=== PATIENT | male | born 1970 | race Two or more races ===

== ENCOUNTER 2017-08-03 09:45 | Day surgery (SDC) | payer BC ==
[2017-07-30 13:07] VITALS: BMI 29.7
--- NOTE | 2017-08-03 07:03 | HP ---
History & Physical Update - History History: No Change - Physical Physical: No Change - Assessment Assessment: No Change - Plan Plan: No Change (L5/S1 radiculopathy--pain radiating down left leg)
[2017-08-03] MEDS ORDERED: oxyCODONE HCL 10 MG SUSTAINED ACTING TABLET PO STA (10:26)
[2017-08-03] MEDS ORDERED: CEFAZOLIN 2 GM in DEXTROSE 5%-WATER - 100 ML IVPB ONE (10:26)
[2017-08-03] MEDS ORDERED: THROMBIN (BOVINE) 5,000 UNIT VIAL TP ONE ×2 (10:54→13:00)
[2017-08-03] MEDS ORDERED: BUPIVACAINE HCL/PF 2.5 MG/ML - 30 ML VIAL IJ ONE (10:54)
[2017-08-03] MEDS ORDERED: LIDOCAINE 1%/EPI 1:100000 (20 ML MULTI DOSE VIAL) ONE (10:54)
[2017-08-03] MEDS ORDERED: methylPREDNISolone ACET (DEPO) 40 MG/1 ML VIAL ONE (10:54)
[2017-08-03] MEDS ORDERED: BUPIVACAINE HCL/PF 0.5% (5MG/ML) 10 ML VIAL ONE (11:15)
[2017-08-03] MEDS ORDERED: MIDAZOLAM HCL 2 MG/2 ML SINGLE DOSE VIAL ONE ×2 (11:28→11:52)
[2017-08-03] MEDS ORDERED: ceFAZolin SODIUM 1 GM VIAL ONE (11:47)
[2017-08-03] MEDS ORDERED: LIDOCAINE 1%/EPI 1:100000 (50 ML MULTI DOSE VIAL) INF ONE (11:55)
[2017-08-03] MEDS ORDERED: ONDANSETRON 4 MG/2 ML VIAL IVPUSH PRN (11:58)
[2017-08-03] MEDS ORDERED: oxyCODONE HCL 5 MG TABLET PO PRN (11:58)
[2017-08-03] MEDS ORDERED: LACTATED RINGERS SOLUTION 1,000 ML IV SCH (12:00)
[2017-08-03] MEDS ORDERED: DEXAMETHASONE SOD PHOSPHATE 4 MG/1 ML VIAL ONE (12:30)
[2017-08-03] MEDS ORDERED: ONDANSETRON 4 MG/2 ML VIAL ONE (12:30)
[2017-08-03] MEDS ORDERED: methylPREDNISolone ACET (DEPO) 40 MG/1 ML VIAL IM ONE (13:00)
[2017-08-03] MEDS ORDERED: BUPIVACAINE HCL/PF 0.25% (2.5MG/ML) 10 ML VIAL IJ ONE (13:17)
--- NOTE | 2017-08-03 13:40 | OP ---
Operative Note - Note: Operative Date: 08/03/17 Pre-Operative Diagnosis: spinal stenosis, L4/5 disc herniation, radiculopathy Operation: L4/5 laminectomy (bilateral) with discectomy; repair durotomy Post-Operative Diagnosis: Same as Pre-op Surgeon: Rico Abreu Review Coordinator: Mahamed Kirby Anesthesiologist/PLUMBING HARDWARE ASSEMBLER: Ileana Murray Anesthesia: Spinal Specimens Removed: L4/5 disc Estimated Blood Loss (mls): 25 Fluid Volume Replaced (mls): 1,000 Operative Report Dictated: Yes
--- NOTE | 2017-08-03 13:42 | SURG ---
Surgery Mining Analyst Note Mining Analyst: Mahamed Kirby PA-C Date of Service: 08/03/17 Diagnosis: Spinal stenosis, L4/5 disc herniation with radiculopathy Procedure: L4/5 bilateral laminectomy/discectomy, repair durotomy I was present for the entirety of the operative procedure. For further detail, please refer to operative report. Visit type - Case Type Case Type: Scheduled Admission - New patient This patient is new to me today: Yes Date on this admission: 08/03/17
[2017-08-03 14:59] VITALS: TEMP 97.8
[2017-08-03 17:09] VITALS: BP 130/79; PULSE 84
--- NOTE | 2017-08-04 09:14 | OP ---
DATE OF OPERATION: 08/03/2017 PREOPERATIVE DIAGNOSIS: Spinal stenosis, L5-S1. POSTOPERATIVE DIAGNOSIS: Spinal stenosis, L5-S1. PROCEDURE PERFORMED: Laminectomy at L5-S1. SURGEON: Rico Abreu MD IT SOFTWARE DEVELOPER: ANN Lcuero ANESTHESIA: Spinal. COMPLICATIONS: Dural tear repaired with DuraGen patch and DuraSeal. DISPOSITION: Patient brought to the PACU in stable condition. INDICATION FOR SURGERY: The patient is a 46-year-old gentleman who has been suffering from pain from his back down his leg. X-rays, MRI were completed which noted that he has spinal stenosis at L5-S1 sassociated with a herniated disk. He had gone through an exhaustive course of treatment for this which included medications, physical therapy, as well as injections. Unfortunately, his pain continued to persist despite all this. At this point, risks, benefits, and alternatives were discussed, and the patient consented to surgery. OPERATIVE NOTE: The patient was brought to the operating room by anesthesia staff. After appropriate patient identification was performed, spinal anesthesia was given. Patient was placed prone onto the OR table with all areas of bony prominences well padded. At this time 2 needles were placed into his back to maggie off the L5-S1 segments. An x-ray was taken to confirm this was correct. Needle was removed and 10 mL of lidocaine with epinephrine was injected into his back. At this time his back was prepped and draped in sterile manner. At this point, timeout was completed. An incision was made from the top of L5 down to the bottom of S1. Dissection was carried down to the fascia. Fascia was split open. At this time appropriate retractors were then placed in. A spinal needle was placed onto the L5 lamina and x-ray was taken to confirm this was correct. Needle was removed and the microscope was brought in. At this point the interspinous ligament at L5-S1 was removed. A portion of the L5-S1 lamina was removed. The flavum was removed. In taking out the flavum, a dural tear was noted. It was covered with a naomi. The decompression was continued. The thecal sac was mobilized medially. A disk herniation was noted at this time. A complete decompression was performed. Subsequent to this procedure, the S1 nerve root appeared to be well decompressed. The dural tear was explored at this time. A DuraGen patch was placed over it, and DuraSeal was placed over that. The fascia was closed with No. 1 Vicryl suture. Subcutaneous tissue was closed with a 2-0 Vicryl suture. Skin was closed with 3 -0 Monocryl suture. Dermabond was applied. Steri-Strips were applied. A sterile dressing was applied. The patient was placed on the OR bed and brought to the PACU in stable condition. Mati TANNER/[id number] MTDD
--- NOTE | 2017-08-06 16:11 | PATH ---
Surgical Pathology Report Patient Name: CATHLEEN GONZALES [facility]. Rec. #: [id number] /Age/Gender: 1970 (Age: 46) / M Account: [id number] Location: [facility] AMBULATORY Taken: 08/03/2017 Received: 08/03/2017 Reported: 08/06/2017 Physicians: Rico Abreu M.D. Specimen(s) Received LUMBAR DISC L5-S1 Clinical History Spinal stenosis Final Diagnosis LUMBAR DISC L5-S1, LAMINECTOMY: CARTILAGE WITH DEGENERATIVE CHANGES. Electronically Signed Jeniffer Foster M.D. Gross Description Received in formalin labeled "lumbar disc L5-S1," is a 1.8 x 1.4 x 0.3 cm aggregate of johnson fragments of fibrocartilaginous tissue. The specimen is entirely submitted in one cassette. 08/04/2017 [facility]08/04/2017
== END 2017-08-03 16:10 | disposition home or self-care (01) ==
LOC: FASU 09:45
PROVIDERS: ATTEND Orthopaedic Surgery Orthopaedic Surgery of the Spine
PROC: 01NB0ZZ Release Lumbar Nerve, Open Approach (ICD-10-PCS; principal; 2017-08-03 11:45)
DX: M48.07 Spinal stenosis, lumbosacral region (principal)
CPT/HCPCS: 72100-TC; 76000-TC; 88304-TC; 94760